=== PATIENT | male | born 1975 | race Two or more races ===

== ENCOUNTER 2023-03-26 15:40 | Inpatient (IN) | payer MEDICAID ==
[~2023-03-26] VITALS: Ht 182.9 cm; Wt 193.7 kg
[2023-03-26] MEDS ORDERED: FUROSEMIDE 40MG/4ML VIAL IV ONE (16:00)
[2023-03-26 16:34] LABS: BASOPHILS % 0.6 % (0.0-2.0); EOSINOPHILS % 2.3 % (0.0-5.0); HEMATOCRIT. 48.4 % (42.0-52.0); HEMOGLOBIN. 15.6 g/dL (14.0-18.0); LYMPHOCYTES % 31.6 % (20.0-50.0); MEAN CORPUSCULAR HEMOGLOBIN 29.7 pg (28.0-32.0); MEAN CORPUSCULAR HGB CONC 32.2 g/dL (31.0-37.0); MEAN CORPUSCULAR VOLUME 92.3 fL (80.0-94.0); MEAN PLATELET VOLUME 8.5 fl (7.4-10.4); MONOCYTES % 8.5 % (2.0-8.0); PLATELET 199 x1000/uL (130-400); RED BLOOD CELL COUNT 5.24 mill/uL (4.7-6.1); RED CELL DISTRIBUTION WIDTH 15.6 % (11.6-14.6); WHITE BLOOD COUNT 4.2 x1000/uL (4.5-11.0)
[2023-03-26 16:49] LABS: CHLORIDE 109 mEq/L (98-107); INDEX HEMOLYSI 1 (1-3); INDEX ICTERIC 1 (1-4); INDEX LIPEMIC 1 (1-3); POTASSIUM 4.3 mEq/L (3.5-5.1); SODIUM 140 mEq/L (136-145)
[2023-03-26 17:01] LABS: ALANINE AMINOTRANSFERASE 26 IU/L (13-61); ALBUMIN 2.8 g/dL (3.4-5.0); ASPARTATE AMINOTRANSFERASE 26 IU/L (15-37); BILIRUBIN TOTAL 0.7 mg/dL (0.1-1.0); CALCIUM 8.6 mg/dL (8.5-10.1); CARBON DIOXIDE 25 mEq/L (21-32); CREATININE 3.1 mg/dL (0.6-1.3); GLUCOSE 288 mg/dL (70-105); NT PRO B-TYPE NATRIURETIC PEP 646 pg/mL (5-125); PROTEIN TOTAL 7.1 g/dL (6.0-8.3); UREA NITROGEN BLOOD 22 mg/dL (7-21)
[2023-03-26 18:25] LABS: TROPONIN I HIGH SENSITIVITY 694 ng/L (<78)
[2023-03-26] MEDS: RIVAROXABAN 15 MG TABLET PO SCH (21:30)
[2023-03-26] MEDS ORDERED: SPIRONOLACTONE 25MG TABLET PO SCH (21:30)
[2023-03-26] MEDS ORDERED: ONDANSETRON HCL 4MG/2ML INJ IV PRN (21:30)
[2023-03-26] MEDS ORDERED: MAGNESIUM/ALUMINUM HYDROXIDE/SIMETHICONE 30ML UDC PO PRN (21:30)
[2023-03-26] MEDS ORDERED: DEXTROSE 50% WATER 50ML SYRINGE IV PRN (21:30)
[2023-03-26] MEDS ORDERED: DOCUSATE SODIUM 100MG CAPSULE PO PRN (21:30)
[2023-03-26] MEDS ORDERED: ACETAMINOPHEN 325MG TABLET PO PRN ×2 (21:30)
[2023-03-26] MEDS ORDERED: IPRATROPIUM/ALBUTEROL 0.5-3(2.5)MG/3ML NEB HHN PRN (21:30)
[2023-03-26] MEDS ORDERED: GUAIFENESIN 200MG/10ML SUGAR FREE UDC PO PRN (21:30)
[2023-03-26 21:40] LABS: TROPONIN I HIGH SENSITIVITY 740 ng/L (<78)
[2023-03-26] MEDS ORDERED: INSULIN REGULAR (HUMULIN R) 300UNITS/3ML VIAL SUBCUT ONE (22:00)
[2023-03-26] MEDS ORDERED: HYDRALAZINE 20MG/ML VIAL IV PRN (22:00)
[2023-03-26] MEDS: AMLODIPINE 5MG TABLET PO SCH (22:13)
[2023-03-26] MEDS: FUROSEMIDE 40MG/4ML VIAL IV SCH (22:13)
[2023-03-26] MEDS ORDERED: NITROGLYCERIN 0.4MG TABLET SL SL PRN (22:30)
[2023-03-26] MEDS: INSULIN GLARGINE 100 UNITS/ML SUBCUT SCH (22:52)
[2023-03-26 23:56] LABS: CLARITY URINE CLEAR (CLEAR); COLOR URINE YELLOW (YELLOW); GLUCOSE URINE 3+ (NEGATIVE); KETONES URINE NEGATIVE (NEGATIVE); LEUKOCYTE ESTERASE URINE NEGATIVE (NEGATIVE); NITRITE URINE NEGATIVE (NEGATIVE); OCCULT BLOOD URINE 1+ (NEGATIVE); PH URINE 5.5 (4.5-8.0); PROTEIN URINE 3+ (NEGATIVE); SPECIFIC GRAVITY URINE 1.019 (1.005-1.030)
[2023-03-26 23:58] LABS: BACTERIA URINE NONE SEEN; SQUAMOUS EPITHELIAL CELL URINE NONE SEEN /lpf (RARE/1+); YEAST URINE NONE SEEN
[2023-03-27] VITALS (8 sets, daily range): BP systolic 135–156; BP diastolic 86–107; PULSE 20–98; RESP 18–22; TEMP 97.1–98.7; O2SAT 97
[2023-03-27 00:33] LABS: INDEX HEMOLYSI 1 (1-3)
[2023-03-27 00:39] LABS: CREATINE KINASE 458 IU/L (39-308)
[2023-03-27 00:47] LABS: PHOSPHORUS 3.5 mg/dL (2.5-4.9); T4 FREE 1.1 ng/dL (0.76-1.46); THYROID STIMULATING HORMONE 2.1 uIU/mL (0.36-3.74)
[2023-03-27 01:02] LABS: TROPONIN I HIGH SENSITIVITY 706 ng/L (<78)
[2023-03-27 01:30] LABS: *AMPHETAMINES SCREEN URINE NEGATIVE (NEGATIVE); *BARBITURATES SCREEN URINE NEGATIVE (NEGATIVE); *BENZODIAZEPINES SCREEN URINE INVALID (NEGATIVE); *COCAINE SCREEN URINE NEGATIVE (NEGATIVE); CANNABINOID URINE SCREEN NEGATIVE (NEGATIVE); ECSTASY MDMA SCREEN URINE INVALID (NEGATIVE); METHADONE URINE SCREEN NEGATIVE (NEGATIVE); OPIATES URINE SCREEN NEGATIVE (NEGATIVE); PHENCYCLIDINE URINE SCREEN NEGATIVE (NEGATIVE)
[2023-03-27 03:05] LABS: WBC URINE 0-2 /hpf (0-2)
[2023-03-27 03:09] LABS: RBC URINE NONE SEEN /hpf (0-2)
[2023-03-27 06:30] LABS: BASOPHILS % 1.3 % (0.0-2.0); EOSINOPHILS % 2.7 % (0.0-5.0); HEMATOCRIT. 49.1 % (42.0-52.0); HEMOGLOBIN. 16.1 g/dL (14.0-18.0); LYMPHOCYTES % 29.9 % (20.0-50.0); MEAN CORPUSCULAR HEMOGLOBIN 30.4 pg (28.0-32.0); MEAN CORPUSCULAR HGB CONC 32.9 g/dL (31.0-37.0); MEAN CORPUSCULAR VOLUME 92.3 fL (80.0-94.0); MEAN PLATELET VOLUME 8.4 fl (7.4-10.4); NEUTROPHILS % 56.1 % (40.0-76.0); PLATELET 208 x1000/uL (130-400); RED BLOOD CELL COUNT 5.32 mill/uL (4.7-6.1); RED CELL DISTRIBUTION WIDTH 15.8 % (11.6-14.6); WHITE BLOOD COUNT 4.6 x1000/uL (4.5-11.0)
[2023-03-27 06:41] LABS: CHLORIDE 105 mEq/L (98-107); INDEX HEMOLYSI 1 (1-3); INDEX ICTERIC 1 (1-4); INDEX LIPEMIC 1 (1-3); POTASSIUM 4.2 mEq/L (3.5-5.1); SODIUM 140 mEq/L (136-145)
[2023-03-27 06:53] LABS: ALANINE AMINOTRANSFERASE 26 IU/L (13-61); ALBUMIN 2.9 g/dL (3.4-5.0); ASPARTATE AMINOTRANSFERASE 26 IU/L (15-37); BETA HYDROXYBUTYRATE 0.2 mMol/L (0.0-0.3); CALCIUM 8.8 mg/dL (8.5-10.1); CARBON DIOXIDE 33 mEq/L (21-32); CREATINE KINASE 430 IU/L (39-308); CREATINE KINASE MB FRACTION 4.5 ng/mL (0.5-3.6); CREATININE 3.2 mg/dL (0.6-1.3); GLUCOSE 285 mg/dL (70-105); PROTEIN TOTAL 7.5 g/dL (6.0-8.3); UREA NITROGEN BLOOD 22 mg/dL (7-21)
[2023-03-27 07:19] LABS: TROPONIN I HIGH SENSITIVITY 674 ng/L (<78)
[2023-03-27] MEDS: BLOOD SUGAR DIAGNOSTIC STRIP TEST SCH ×4 (07:51→20:03)
[2023-03-27] MEDS: INSULIN LISPRO 100 UNITS/ML SUBCUT SCH ×4 (08:35→20:21)
[2023-03-27] MEDS ORDERED: LOSARTAN 25 MG TABLET PO SCH (09:00)
[2023-03-27] MEDS: IPRATROPIUM/ALBUTEROL 0.5-3(2.5)MG/3ML NEB HHN SCH ×3 (09:10→20:57)
[2023-03-27] MEDS: FUROSEMIDE 40MG/4ML VIAL IV SCH ×2 (09:25→17:18)
[2023-03-27] MEDS: AMLODIPINE 5MG TABLET PO SCH (09:26)
[2023-03-27] MEDS: ASPIRIN 81MG EC TABLET PO SCH (09:26)
[2023-03-27 11:33] LABS: INR 1.1; PROTHROMBIN TIME 12.1 sec (9.6-11.0)
[2023-03-27 11:54] LABS: INDEX HEMOLYSI 1 (1-3)
[2023-03-27 12:02] LABS: CREATINE KINASE 465 IU/L (39-308)
[2023-03-27] MEDS: RIVAROXABAN 15 MG TABLET PO SCH (17:27)
[2023-03-27] MEDS ORDERED: FAMOTIDINE 20MG TABLET PO SCH (21:00)
[2023-03-27] MEDS ORDERED: ATORVASTATIN CALCIUM 20MG TABLET PO SCH (21:00)
[2023-03-27] MEDS: INSULIN GLARGINE 100 UNITS/ML SUBCUT SCH (21:27)
[2023-03-28] VITALS: BP 127/93; PULSE 78; RESP 19; TEMP 97.5
[2023-03-28] MEDS: IPRATROPIUM/ALBUTEROL 0.5-3(2.5)MG/3ML NEB HHN SCH ×2 (02:17→09:45)
[2023-03-28 04:00] VITALS: BP 144/87; PULSE 72; RESP 18; TEMP 97.3
[2023-03-28 05:31] LABS: HEMATOCRIT 49.4 % (42.0-52.0); HEMOGLOBIN 16.6 g/dL (14.0-18.0); MEAN CORPUSCULAR HEMOGLOBIN 30.5 pg (28.0-32.0); MEAN CORPUSCULAR HGB CONC 33.7 g/dL (31.0-37.0); MEAN CORPUSCULAR VOLUME 90.5 fL (80.0-94.0); PLATELET 210 x1000/uL (130-400); RED BLOOD CELL COUNT 5.46 mill/uL (4.7-6.1); RED CELL DISTRIBUTION WIDTH 15.2 % (11.6-14.6); WHITE BLOOD COUNT 4.7 x1000/uL (4.5-11.0)
[2023-03-28 05:52] LABS: POTASSIUM 3.5 mEq/L (3.5-5.1)
[2023-03-28 06:09] LABS: CALCIUM 8.8 mg/dL (8.5-10.1); CREATININE 2.9 mg/dL (0.6-1.3); PHOSPHORUS 3.7 mg/dL (2.5-4.9)
[2023-03-28] MEDS: BLOOD SUGAR DIAGNOSTIC STRIP TEST SCH ×2 (07:00→11:43)
[2023-03-28 08:00] VITALS: BP 120/97; PULSE 68; RESP 18; TEMP 98.3
[2023-03-28 08:08] LABS: HIV SCREEN 4G Non Reactive (Non Reactive)
[2023-03-28] MEDS: INSULIN LISPRO 100 UNITS/ML SUBCUT SCH ×2 (08:50→12:34)
[2023-03-28] MEDS: ASPIRIN 81MG EC TABLET PO SCH (08:50)
[2023-03-28] MEDS: FUROSEMIDE 40MG/4ML VIAL IV SCH (08:50)
[2023-03-28] MEDS: AMLODIPINE 5MG TABLET PO SCH (08:52)
[2023-03-28 09:09] LABS: COMPLEMENT C3 144 mg/dL (82-167); COMPLEMENT C4 21 mg/dL (12-38)
[2023-03-28 10:11] LABS: ANTI-NUCLEAR ANTIBODIES DIRECT Positive (Negative)
[2023-03-28 13:23] VITALS: BP 117/77; PULSE 96; TEMP 97.8; O2SAT 95
[2023-03-28] MEDS ORDERED: HYDRALAZINE HCL 25MG TABLET PO SCH (14:00)
[2023-03-28] MEDS ORDERED: INFLUENZA VACCINE 05/PF 0.5 ML SYRINGE IM ONE (15:00)
[2023-03-28] MEDS ORDERED: ISOSORBIDE DINITRATE 10MG TABLET PO SCH (17:00)
[2023-03-28] MEDS ORDERED: ATORVASTATIN CALCIUM 40MG TABLET PO SCH (21:00)
[2023-03-28 21:16] LABS: HEPATITIS B SURFACE ANTIGEN NEGATIVE
[2023-03-28 21:40] LABS: HEPATITIS C VIR.AB 0.11 INDEXVAL (0.00-0.80)
[2023-03-28 21:42] LABS: HEPATITIS A AB IGM NEGATIVE (NEGATIVE)
== END 2023-03-28 14:00 | disposition home or self-care (01) | DRG 194 ==
LOC: ER 16:48 → 7WST 21:21 → EDBEDREQ 21:40 → EDBEDREQTM 21:40
PROVIDERS: ADMIT Hospitalist; ATTEND Hospitalist
DX: I13.0 Hypertensive heart and chronic kidney disease with heart failure and stage 1 through stage 4 chronic kidney disease, or unspecified chronic kidney disease (principal); J96.00 Acute respiratory failure, unspecified whether with hypoxia or hypercapnia; E43 Unspecified severe protein-calorie malnutrition; N17.9 Acute kidney failure, unspecified; E11.22 Type 2 diabetes mellitus with diabetic chronic kidney disease; E11.42 Type 2 diabetes mellitus with diabetic polyneuropathy; I48.91 Unspecified atrial fibrillation; E11.51 Type 2 diabetes mellitus with diabetic peripheral angiopathy without gangrene; E11.621 Type 2 diabetes mellitus with foot ulcer; Z68.43 Body mass index [BMI] 50.0-59.9, adult; I50.43 Acute on chronic combined systolic (congestive) and diastolic (congestive) heart failure; G47.33 Obstructive sleep apnea (adult) (pediatric); I16.9 Hypertensive crisis, unspecified; N18.9 Chronic kidney disease, unspecified; E11.65 Type 2 diabetes mellitus with hyperglycemia; F17.210 Nicotine dependence, cigarettes, uncomplicated; E66.01 Morbid (severe) obesity due to excess calories; I83.93 Asymptomatic varicose veins of bilateral lower extremities; L97.509 Non-pressure chronic ulcer of other part of unspecified foot with unspecified severity; L97.919 Non-pressure chronic ulcer of unspecified part of right lower leg with unspecified severity; Z79.01 Long term (current) use of anticoagulants; Z91.199 Patient's noncompliance with other medical treatment and regimen due to unspecified reason; Z79.899 Other long term (current) drug therapy; Z59.02 Unsheltered homelessness; Z79.4 Long term (current) use of insulin
CPT/HCPCS: 36415; 71045; 76770; 80048; 80053; 80061; 80305; 81003; 82010; 82550; 82553; 82803; 82962; 83036; 83605; 83735; 83880; 84100; 84439; 84443; 84484; 85025; 85027; 85379; 86038; 86160; 86705; 86709; 86803; 87340; 87389; 90686; 93005; 93306; 93970; 94640; 97165; 99291; J1815; J1940